=== PATIENT | male | born 2000 | race Caucasian/White ===

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

== ENCOUNTER 2019-04-01 21:36 | Emergency (ER) | payer BC ==
[2019-04-01] MEDS ORDERED: Lidocaine 1% with EPINEPHrine 1:100,000 20 ML MDV ONE (21:50)
--- NOTE | 2019-04-02 00:19 | ER ---
HISTORY OF PRESENT ILLNESS: A 18-year-old male here with complaints of cutting his left hand. He was tightening a saw blade on a skill saw with an Sherman wrench. He thought if he held the Sherman wrench and he hit the trigger on the skill saw it would tighten quickly, and when he did this, the Sherman wrench ripped out of control and cut the patient's left hand involving the webspace between the thumb and index finger. The patient denies any other injuries. He states he otherwise is healthy. He does not take any current medications and is current on his tetanus status. OBJECTIVE: GENERAL APPEARANCE: The patient is awake and alert. No obvious distress. VITAL SIGNS: Reviewed as listed. EXTREMITIES: Examining the left hand reveals a jagged laceration in the webspace that is 1.7 cm in length. There is no active bleeding at this time. It is through the epidermis with minimal subcu and tissue involvement. He has full and unguarded range of motion of the thumb and index finger. DIAGNOSIS: Laceration to left hand. TREATMENT PLAN: The site was initially swabbed with Betadine after which I injected 1% lidocaine with epinephrine locally for anesthesia. I then cleansed the wound more thoroughly with Betadine and sterile water mixed together. I then acquired a sterile field and the wound was repaired with sutures. It required 4 sutures using 5-0 Ethilon. The patient tolerated the procedure well. Post-care instruction; he is to keep the site covered for 2 or 3 days, removing it after washing and putting on a dry dressing. He is to monitor closely for infection. Nursing staff will apply an initial dressing tonight with antibiotic ointment, gauze, and tape. He can downsize to a Band-Aid by tomorrow. Activity should be as tolerated, and the sutures should come out in about 10 days. The patient has no further questions. CRS/MODL /[id number]
== END 2019-04-01 22:19 | disposition home or self-care (01) ==
LOC: LB.ED 21:36
DX: S61.412A Laceration without foreign body of left hand, initial encounter (principal); W26.8XXA Contact with other sharp object(s), not elsewhere classified, initial encounter
CPT/HCPCS: 12001; 99282